=== PATIENT | male | born 1950 | race Caucasian/White ===

== ENCOUNTER 2018-03-08 08:32 | Day surgery (SDC) | payer OTHER, MEDICARE, BC ==
[~2018-03-08 08:32] MED LIST: Metoclopramide 10 MG/2 ML SDV IV PRN; Sodium Chloride 0.9% 1,000 ML IV SCH; Sodium Chloride 0.9% 10 ML Syringe FLUSH PRN
[2018-03-08] MEDS ORDERED: Propofol 200 MG/20 ML SDV ONE (10:35)
--- NOTE | 2018-03-08 11:55 | OR ---
DATE OF OPERATION: 03/08/2018 PREOPERATIVE DIAGNOSIS: Personal history of colon polyps. POSTOPERATIVE DIAGNOSIS: Personal history of colon polyps. PROCEDURE: Colonoscopy. ANESTHESIA: MAC. ESTIMATED BLOOD LOSS: None. COMPLICATIONS: None. INDICATION FOR THE PROCEDURE: The patient is a 67-year-old male, who is here for surveillance colonoscopy. Last scope was approximately 5 years ago. It was normal per patient. The patient did have polyps seen on previous colonoscopy. The patient otherwise denies any change in bowel habits. DESCRIPTION OF PROCEDURE: Informed consent was obtained from the patient. The patient was taken to the operating room and placed on the table in the left lateral decubitus position. Monitored anesthesia care was administered. Digital rectal exam was normal. Colonoscope was then advanced through the anus directed towards the cecum. Cecum was identified by appendiceal orifice and ileocecal valve. Colonoscope was then slowly withdrawn. The patient did have some mild sigmoid diverticulosis. Otherwise no polyps. No masses. No areas of AV malformation or ischemia or inflammation. Retroflexion was performed in the rectum which was also unremarkable. Colonoscope was then withdrawn. FINDINGS: Mild sigmoid diverticulosis. RECOMMENDATIONS: We would recommend a high-fiber diet. I would also recommend repeat colonoscopy in 10 years from now for further surveillance. HANNAH/KAMILA /[id number]
== END 2018-03-08 12:20 | disposition home or self-care (01) ==
LOC: LB.SDS 08:32
PROVIDERS: ATTEND Surgery
DX: Z12.11 Encounter for screening for malignant neoplasm of colon (principal); K57.30 Diverticulosis of large intestine without perforation or abscess without bleeding; Z86.010 Personal history of colon polyps; E78.00 Pure hypercholesterolemia, unspecified; J44.9 Chronic obstructive pulmonary disease, unspecified; Z87.891 Personal history of nicotine dependence; K21.9 Gastro-esophageal reflux disease without esophagitis; Z88.8 Allergy status to other drugs, medicaments and biological substances; Z79.899 Other long term (current) drug therapy
CPT/HCPCS: J2704; J7030

== ENCOUNTER → 2019-09-10 | Outpatient (CLI) | payer OTHER, MEDICARE ==
--- NOTE | 2019-09-12 12:45 | CT ---
Date of Service: 09/10/19 Clinical Data: Malignant neoplasm of unspecified part of unspecified bronchus or lung UNENHANCED CHEST CT: Multislice acquisition through the chest without IV contrast was performed. No priors. There are extensive emphysematous changes throughout both lungs. There are biapical asthmatic changes and cystic changes. There are poorly defined infiltrates with the extensive area of mass-like consolidation involving the left upper lobe anteriorly. There also volume loss on the left upper lobe. All of this could be an infectious or inflammatory process. The possibility of tumor should be considered. The lungs are otherwise clear. No pneumothorax. No pleural effusions. Heart size is normal. There are mild coronary artery calcifications. There is a small pericardial effusion. No hilar or mediastinal adenopathy. Mild degenerative disk disease at multiple levels in the thoracic spine. No other significant findings. IMPRESSION: Abnormal exam. See above. [id number] MTDD
== END ==
LOC: LB.CT 10:28
PROVIDERS: ATTEND Family Medicine
DX: C34.90 Malignant neoplasm of unspecified part of unspecified bronchus or lung (principal); I25.10 Atherosclerotic heart disease of native coronary artery without angina pectoris; I31.3 Pericardial effusion (noninflammatory); M51.34 Other intervertebral disc degeneration, thoracic region
CPT/HCPCS: 71250

== ENCOUNTER 2019-09-24 08:06 | Observation (INO) | payer OTHER, MEDICARE ==
[2019-09-24] MEDS ORDERED: Sodium Chloride 0.9% 10 ML Syringe FLUSH PRN ×2 (08:26→11:53)
[2019-09-24] MEDS ORDERED: Sodium Chloride 0.9% 1,000 ML IV SCH (08:30)
--- NOTE | 2019-09-24 08:34 | EDM.PDOC ---
ED HPI GENERAL MEDICAL PROBLEM - General Chief Complaint: General Stated Complaint: TROUBLE BREATHING Time Seen by Provider: 09/24/19 08:20 Source of Information: Reports: Patient History Limitations: Reports: No Limitations - History of Present Illness INITIAL COMMENTS - FREE TEXT/NARRATIVE: This patient presents to the ED for evaluation of cough and fatigue. He states he has been ill for the past week and that it started with a cough. As the week has progressed, the patient has become increasingly fatigued and the cough has gotten much worse. He reports being unable to walk through his home without having to stop and rest and because he is quite short of breath. He is also having difficulty speaking in full sentences due to shortness of breath. He denies fever. His appetite is poor. He denies vomiting or diarrhea. Onset: Gradual Onset Date: 09/17/19 Duration: Getting Worse Location: Reports: Chest Associated Symptoms: Reports: Cough, Loss of Appetite, Shortness of Breath, Weakness. Denies: Fever/Chills, Headaches, Nausea/Vomiting Bilateral Chest Pain Score (Numeric/FACES): 2 - Related Data Allergies Allergy/AdvReac Type Severity Reaction Status Date / Time naproxen [From Aleve] Allergy Hives Verified 09/24/19 08:14 Home Meds: Home Meds Aspirin [Nash Chewable] 81 mg PO QPM 03/06/18 [History] Multivitamin [Men's Multi-Vitamin] 1 each PO QPM 03/06/18 [History] atorvaSTATin [Lipitor] 20 mg PO BEDTIME 03/06/18 [History] Past Medical History Cardiovascular History: Reports: High Cholesterol Gastrointestinal History: Reports: None - Past Surgical History Cardiovascular Surgical History: Reports: None Respiratory Surgical History: Reports: Lung Biopsies, Other (See Below) Other Respiratory Surgeries/Procedures: partial lobectomy GI Surgical History: Reports: Appendectomy, Colonoscopy, Polypectomy Social & Family History - Family History Family Medical History: Noncontributory ED ROS GENERAL - Review of Systems Review Of Systems: See Below Constitutional: Reports: Weakness, Decreased Appetite. Denies: Fever HEENT: Reports: No Symptoms Respiratory: Reports: Shortness of Breath, Wheezing, Cough Cardiovascular: Reports: No Symptoms GI/Abdominal: Reports: Decreased Appetite. Denies: Diarrhea, Vomiting Musculoskeletal: Reports: No Symptoms Skin: Reports: No Symptoms Neurological: Reports: No Symptoms ED EXAM, GENERAL - Physical Exam Exam: See Below Exam Limited By: No Limitations General Appearance: Alert, WD/WN, No Apparent Distress Eye Exam: Bilateral Eye: PERRL Ears: Normal External Exam Nose: Normal Inspection Throat/Mouth: Normal Inspection Head: Atraumatic, Normocephalic Neck: Normal Inspection, Supple, Full Range of Motion Respiratory/Chest: Respiratory Distress, Decreased Breath Sounds, Rales ( bilateral bases), Wheezing (scattered inspiratory), Accessory Muscle Use, Retractions Cardiovascular: Regular Rate, Rhythm Extremities: Normal Inspection Neurological: Alert, Oriented, Normal Cognition Skin Exam: Warm, Dry, Normal Color Course - Vital Signs Last Recorded V/S: Last Vital Signs Temp 36.1 C 09/24/19 08:15 Pulse 106 H 09/24/19 08:15 Resp 22 H 09/24/19 08:15 BP 153/90 H 09/24/19 08:15 Pulse Ox 96 09/24/19 08:15 - Orders/Labs/Meds Orders: Active Orders 24 hr Category Date Time Status Chest 2V [CR] Stat Exams 09/24/19 08:26 Taken BASIC METABOLIC PANEL,BMP [CHEM] Stat Lab 09/24/19 08:26 Ordered CULTURE BLOOD [BC] Stat Lab 09/24/19 08:50 Received LACTATE DEHYDROGENASE,LDH [CHEM] Stat Lab 09/24/19 08:27 Ordered Levofloxacin/Dextrose 5%-Water [Levaquin in D5W 750 MG/ Med 09/24/19 09:15 Active 150 ML] 750 mg Premix Bag 1 bag IV Q24H Sodium Chloride 0.9% [Normal Saline] 1,000 ml Med 09/24/19 08:30 Active IV ASDIRECTED Sodium Chloride 0.9% [Saline Flush] Med 09/24/19 08:26 Active 10 ml FLUSH ASDIRECTED PRN Saline Lock Insert [OM.PC] Stat Oth 09/24/19 08:26 Ordered Medication Orders Acetaminophen (Tylenol) 650 mg PO Q4H PRN PRN Reason: Fever Albuterol/Ipratropium (Duoneb 3.0-0.5 Mg/3 Ml) 3 ml NEB QID PRN PRN Reason: Shortness Of Breath/wheezing Last Admin: 09/24/19 08:55 Dose: 3 ml Sodium Chloride (Normal Saline) 1,000 mls @ 999 mls/hr IV ASDIRECTED ELIZABETH Last Admin: 09/24/19 08:50 Dose: 999 mls/hr Levofloxacin/Dextrose 750 mg/ (Premix) 150 mls @ 100 mls/hr IV Q24H [facility] Ondansetron HCl (Zofran) 4 mg IV Q4H PRN PRN Reason: Nausea/Vomiting Sodium Chloride (Saline Flush) 10 ml FLUSH ASDIRECTED PRN PRN Reason: Keep Vein Open Labs: Laboratory Tests 09/24/19 Range/Units 08:30 WBC 14.4 H D (4.0-11.0) K/uL RBC 4.99 (4.50-6.50) M/uL Hgb 14.1 (13.0-18.0) g/dL Hct 41.9 (40.0-54.0) % MCV 84 (76-96) fL MCH 28.3 (27.0-32.0) pg MCHC 33.7 (31.0-35.0) g/dL RDW 14.4 (11.0-16.0) % Plt Count 309 D (150-400) K/uL MPV 9.9 (6.0-10.0) fL Neut % (Auto) 75.7 H (45.0-70.0) % Lymph % (Auto) 11.4 L (20.0-40.0) % Wright % (Auto) 11.6 H (3.0-10.0) % Eos % (Auto) 0.8 L (1.0-5.0) % Baso % (Auto) 0.5 (0.0-0.5) % Neut # (Auto) 10.86 H (2.00-7.50) K/uL Lymph # (Auto) 1.64 (1.50-4.00) K/uL Wright # (Auto) 1.66 H (0.20-0.80) K/uL Eos # (Auto) 0.12 (0.04-0.40) K/uL Baso # (Auto) 0.07 (0.02-0.10) K/uL Meds: Medications Generic Name Dose Route Start Last Admin Trade Name Freq PRN Reason Stop Dose Admin Acetaminophen 650 mg 09/24/19 09:15 Tylenol PO Q4H PRN Fever Albuterol/Ipratropium 3 ml 09/24/19 09:11 09/24/19 08:55 Duoneb 3.0-0.5 Mg/3 Ml NEB 3 ml QID PRN Administration Shortness Of Breath/wheezing Sodium Chloride 1,000 mls @ 999 mls/hr 09/24/19 08:30 09/24/19 08:50 Normal Saline IV 999 mls/hr ASDIRECTED ELIZABETH Administration Levofloxacin/Dextrose 750 mg/ 150 mls @ 100 mls/hr 09/24/19 09:15 Premix IV Q24H ELIZABETH Ondansetron HCl 4 mg 09/24/19 09:11 Zofran IV Q4H PRN Nausea/Vomiting Sodium Chloride 10 ml 09/24/19 08:26 Saline Flush FLUSH ASDIRECTED PRN Keep Vein Open - Re-Assessments/Exams Free Text/Narrative Re-Assessment/Exam: 09/24/19 09:31 This patient presents to the ED for evlaution of cough and fatigue. History and clinical findings are most consistent with pneumonia. On plain film the patient appears to have a right middle lob pneumonia. He will be admitted to the inpatient unit on observation status for oxygen therapy and IV antibiotics. Departure - Departure Time of Disposition: 09:32 Disposition: Refer to Observation Condition: Fair Clinical Impression: Pneumonia - Discharge Information *PRESCRIPTION DRUG MONITORING PROGRAM REVIEWED*: Not Applicable Sepsis Event Note - Evaluation Sepsis Screening Result: No Definite Risk - Focused Exam Vital Signs: Vital Signs Temp Pulse Resp BP Pulse Ox 09/24/19 08:15 36.1 C 106 H 22 H 153/90 H 96 09/24/19 08:11 36.1 C 110 H 22 H 153/90 H 96 Date Exam was Performed: 09/24/19 Time Exam was Performed: 09:31 - My Orders Last 24 Hours: My Active Orders 09/24/19 08:26 Chest 2V [CR] Stat BASIC METABOLIC PANEL,BMP [CHEM] Stat Sodium Chloride 0.9% [Saline Flush] 10 ml FLUSH ASDIRECTED PRN Saline Lock Insert [OM.PC] Stat 09/24/19 08:27 LACTATE DEHYDROGENASE,LDH [CHEM] Stat 09/24/19 08:30 Sodium Chloride 0.9% [Normal Saline] 1,000 ml IV ASDIRECTED 09/24/19 08:50 CULTURE BLOOD [BC] Stat 09/24/19 09:15 Levofloxacin/Dextrose 5%-Water [Levaquin in D5W 750 MG/150 ML] 750 mg Premix Bag 1 bag IV Q24H - Assessment/Plan Last 24 Hours: My Active Orders 09/24/19 08:26 Chest 2V [CR] Stat BASIC METABOLIC PANEL,BMP [CHEM] Stat Sodium Chloride 0.9% [Saline Flush] 10 ml FLUSH ASDIRECTED PRN Saline Lock Insert [OM.PC] Stat 09/24/19 08:27 LACTATE DEHYDROGENASE,LDH [CHEM] Stat 09/24/19 08:30 Sodium Chloride 0.9% [Normal Saline] 1,000 ml IV ASDIRECTED 09/24/19 08:50 CULTURE BLOOD [BC] Stat 09/24/19 09:15 Levofloxacin/Dextrose 5%-Water [Levaquin in D5W 750 MG/150 ML] 750 mg Premix Bag 1 bag IV Q24H
[2019-09-24] MEDS ORDERED: Ondansetron 4 MG/2 ML SDV IV PRN (09:11)
[2019-09-24] MEDS ORDERED: Albuterol/Ipratropium 3.0-0.5 MG/3 ML Neb Soln NEB PRN (09:11)
--- NOTE | 2019-09-24 09:45 | PCM.HP.2 ---
H&P History of Present Illness - General Date of Service: 09/24/19 Admit Problem/Dx: Admission Diagnosis/Problem Admission Diagnosis/Problem Pneumonia Source of Information: Patient History Limitations: Reports: No Limitations - History of Present Illness Initial Comments - Free Text/Narative: See ED record. Bilateral Chest Pain Score (Numeric/FACES): 2 - Related Data Allergies/Adverse Reactions: Allergies Allergy/AdvReac Type Severity Reaction Status Date / Time naproxen [From Aleve] Allergy Hives Verified 09/24/19 08:14 Home Medications: Home Meds Aspirin [Nash Chewable] 81 mg PO QPM 03/06/18 [History] Multivitamin [Men's Multi-Vitamin] 1 each PO QPM 03/06/18 [History] atorvaSTATin [Lipitor] 20 mg PO BEDTIME 03/06/18 [History] Past Medical History Cardiovascular History: Reports: High Cholesterol Gastrointestinal History: Reports: None - Past Surgical History Cardiovascular Surgical History: Reports: None Respiratory Surgical History: Reports: Lung Biopsies, Other (See Below) Other Respiratory Surgeries/Procedures: partial lobectomy GI Surgical History: Reports: Appendectomy, Colonoscopy, Polypectomy Social & Family History - Family History Family Medical History: Noncontributory H&P Review of Systems - Review of Systems: Review Of Systems: See Below General: Reports: Weakness, Fatigue, Decreased Appetite. Denies: Fever HEENT: Reports: No Symptoms Pulmonary: Reports: Shortness of Breath, Wheezing, Cough, Sputum Cardiovascular: Reports: Dyspnea on Exertion, Orthopnea. Denies: Chest Pain Gastrointestinal: Denies: Diarrhea, Nausea, Vomiting Musculoskeletal: Reports: No Symptoms Skin: Reports: No Symptoms Neurological: Reports: No Symptoms Exam - Exam Exam: See Below - Vital Signs Vital Signs: Last Vital Signs Temp 36.1 C 09/24/19 08:15 Pulse 106 H 09/24/19 08:15 Resp 22 H 09/24/19 08:15 BP 153/90 H 09/24/19 08:15 Pulse Ox 96 09/24/19 08:15 Weight: 66.224 kg - Exam Quality Assessment: Supplemental Oxygen General: Alert, Oriented, Cooperative, Moderate Distress HEENT: PERRLA, Conjunctiva Clear, EOMI, Hearing Intact, Mucosa Moist & [place], Nares Patent, Posterior Pharynx Clear, Pupils Equal, Pupils Reactive, TMs Clear Neck: Supple, Trachea Midline Lungs: Decreased Breath Sounds, Rales, Stridor, Wheezing, Other (decreased to bases, intermittent expiratory wheezes) Cardiovascular: Regular Rate, Regular Rhythm GI/Abdominal Exam: Normal Bowel Sounds, Soft, Non-Tender, No Distention Extremities: Normal Inspection, Normal Range of Motion, No Pedal Edema Skin: Warm, Dry Neurological: Cranial Nerves Intact Neuro Extensive - Mental Status: Alert, Oriented x3, Normal Mood/Affect, Normal Cognition Psychiatric: Alert, Normal Affect - Patient Data Lab Results Last 24 hrs: Laboratory Results - last 24 hr 09/24/19 09/24/19 09/24/19 Range/Units 08:30 08:30 08:30 WBC 14.4 H D (4.0-11.0) K/uL RBC 4.99 (4.50-6.50) M/uL Hgb 14.1 (13.0-18.0) g/dL Hct 41.9 (40.0-54.0) % MCV 84 (76-96) fL MCH 28.3 (27.0-32.0) pg MCHC 33.7 (31.0-35.0) g/dL RDW 14.4 (11.0-16.0) % Plt Count 309 D (150-400) K/uL MPV 9.9 (6.0-10.0) fL Neut % (Auto) 75.7 H (45.0-70.0) % Lymph % (Auto) 11.4 L (20.0-40.0) % [place] % (Auto) 11.6 H (3.0-10.0) % Eos % (Auto) 0.8 L (1.0-5.0) % Baso % (Auto) 0.5 (0.0-0.5) % Neut # (Auto) 10.86 H (2.00-7.50) K/uL Lymph # (Auto) 1.64 (1.50-4.00) K/uL [place] # (Auto) 1.66 H (0.20-0.80) K/uL Eos # (Auto) 0.12 (0.04-0.40) K/uL Baso # (Auto) 0.07 (0.02-0.10) K/uL Sodium 136 (136-145) mmol/L Potassium 4.2 (3.5-5.1) mmol/L Chloride 94 L (98-107) mmol/L Carbon Dioxide 30.7 (21.0-32.0) mmol/L Anion Gap 15.5 H (5.0-15.0) mmol/L BUN 13 (8-26) mg/dL Creatinine 0.83 (0.70-1.30) mg/dL Est Cr Clr Drug Dosing 74.73 mL/min Estimated GFR (MDRD) > 60 (>60) MLS/MIN BUN/Creatinine Ratio 15.7 (6-25) Glucose 111 H (74-100) mg/dL Calcium 9.0 (8.5-10.1) mg/dL Lactate Dehydrogenase 324 H (85-227) U/L Result Diagrams: 09/24/19 08:30 09/24/19 08:30 Sepsis Event Note - Evaluation Sepsis Screening Result: No Definite Risk - Focused Exam Vital Signs: Vital Signs Temp Pulse Resp BP Pulse Ox 09/24/19 08:15 36.1 C 106 H 22 H 153/90 H 96 09/24/19 08:11 36.1 C 110 H 22 H 153/90 H 96 Date Exam was Performed: 09/24/19 Time Exam was Performed: 09:41 - Problem List (1) Pneumonia SNOMED Code(s): 151133980 ICD Code: J18.9 - PNEUMONIA, UNSPECIFIED ORGANISM Status: Acute Priority : High Current Visit: Yes Onset Date: ~09/17/19 Qualifiers: Pneumonia type: due to unspecified organism Laterality: right Lung location: middle lobe of lung Qualified Code(s): J18.9 - Pneumonia, unspecified organism Problem List Initiated/Reviewed/Updated: No Orders Last 24hrs: Active Orders 24 hr Category Date Time Status Patient Status [ADT] Routine ADT 09/24/19 09:12 Active Oxygen Therapy [RC] PRN Care 09/24/19 09:12 Active Pulse Oximetry [RC] CONTINUOUS Care 09/24/19 09:14 Active RT Aerosol Therapy [RC] ASDIRECTED Care 09/24/19 09:15 Active Up With Assistance [RC] ASDIRECTED Care 09/24/19 09:11 Active VTE/DVT Education [RC] Per Unit Routine Care 09/24/19 09:12 Active Vital Signs [RC] Q4H Care 09/24/19 09:12 Active Full Liquid Diet [DIET] Diet 09/24/19 Lunch Ordered Chest 2V [CR] Stat Exams 09/24/19 08:26 Taken CULTURE BLOOD [BC] Stat Lab 09/24/19 08:50 Received Acetaminophen [Tylenol] Med 09/24/19 09:15 Active 650 mg PO Q4H PRN Albuterol/Ipratropium [DuoNeb 3.0-0.5 MG/3 ML] Med 09/24/19 09:11 Active 3 ml NEB QID PRN Levofloxacin/Dextrose 5%-Water [Levaquin in D5W 750 MG/ Med 09/24/19 09:15 Active 150 ML] 750 mg Premix Bag 1 bag IV Q24H Ondansetron [Zofran] Med 09/24/19 09:11 Active 4 mg IV Q4H PRN Sodium Chloride 0.9% [Normal Saline] 1,000 ml Med 09/24/19 08:30 Active IV ASDIRECTED Sodium Chloride 0.9% [Saline Flush] Med 09/24/19 08:26 Active 10 ml FLUSH ASDIRECTED PRN Saline Lock Insert [OM.PC] Stat Oth 09/24/19 08:26 Ordered Resuscitation Status Routine Resus Stat 09/24/19 09:11 Ordered Medication Orders Acetaminophen (Tylenol) 650 mg PO Q4H PRN PRN Reason: Fever Albuterol/Ipratropium (Duoneb 3.0-0.5 Mg/3 Ml) 3 ml NEB QID PRN PRN Reason: Shortness Of Breath/wheezing Last Admin: 09/24/19 08:55 Dose: 3 ml Sodium Chloride (Normal Saline) 1,000 mls @ 999 mls/hr IV ASDIRECTED ELIZABETH Last Admin: 09/24/19 08:50 Dose: 999 mls/hr Levofloxacin/Dextrose 750 mg/ (Premix) 150 mls @ 100 mls/hr IV Q24H [facility] Ondansetron HCl (Zofran) 4 mg IV Q4H PRN PRN Reason: Nausea/Vomiting Sodium Chloride (Saline Flush) 10 ml FLUSH ASDIRECTED PRN PRN Reason: Keep Vein Open - Mortality Measure Prognosis:: Good
[2019-09-24] MEDS ORDERED: Levofloxacin/Dextrose 5%-Water 150 ML IV ONE (10:41)
[2019-09-24] MEDS: Levofloxacin/Dextrose 5%-Water 750 MG in Premix Bag 1 BAG IV SCH (11:06)
--- NOTE | 2019-09-24 11:46 | CR ---
DATE OF SERVICE: 09/24/19 CLINICAL DATA: Cough. PA AND LATERAL CHEST: Comparison is made to a prior exam dated 04/22/19. The heart size is normal. There is progressive, masslike consolidation in the right hilum and right perihilar region with increase in size and extent from the prior exam. No other significant interval changes from the prior study. [id number] MTDD
[2019-09-24] MEDS ORDERED: Codeine/guaiFENesin 10-100 MG/5 ML Syrup 5 ML Cup PO PRN (16:38)
[2019-09-24] MEDS ORDERED: atorvaSTATin 20 MG Tab PO SCH (20:00)
[2019-09-24] MEDS: Acetaminophen 325 MG Tab PO PRN (20:11)
[2019-09-25] MEDS: Acetaminophen 325 MG Tab PO PRN (04:04)
[2019-09-25] MEDS ORDERED: Aspirin 81 MG Tab.Chew PO SCH ×2 (08:00→20:00)
[2019-09-25] MEDS ORDERED: Levofloxacin/Dextrose 5%-Water 150 ML IV ONE (08:12)
[2019-09-25] MEDS: Levofloxacin/Dextrose 5%-Water 750 MG in Premix Bag 1 BAG IV SCH (08:45)
--- NOTE | 2019-09-25 11:58 | PCM.PN ---
- General Info Date of Service: 09/25/19 Admission Dx/Problem (Free Text): Admission Diagnosis/Problem Admission Diagnosis/Problem Pneumonia Subjective Update: Denies pain except some chest tightness with cough. Functional Status: Reports: Pain Controlled - Review of Systems General: Denies: Fever HEENT: Reports: No Symptoms Pulmonary: Reports: Shortness of Breath, Cough Cardiovascular: Reports: No Symptoms Gastrointestinal: Reports: No Symptoms Genitourinary: Reports: No Symptoms Musculoskeletal: Reports: No Symptoms Skin: Reports: No Symptoms Neurological: Reports: No Symptoms - Patient Data Vitals - Most Recent: Last Vital Signs Temp 36.7 C 09/25/19 08:00 Pulse 87 09/25/19 08:00 Resp 20 09/25/19 08:00 BP 140/90 09/25/19 08:00 Pulse Ox 93 L 09/25/19 09:10 Weight - Most Recent: 64.592 kg Jason Results Last 24 Hours: Microbiology 09/24/19 13:00 MRSA Surveillance Culture - Final Nares, Left NO MRSA ISOLATED 09/24/19 08:50 Aerobic Blood Culture - Preliminary Blood NO GROWTH AFTER 1 DAY Anaerobic Blood Culture - Preliminary NO GROWTH AFTER 1 DAY Med Orders - Current: Current Medications Acetaminophen (Tylenol) 650 mg PO Q4H PRN PRN Reason: Fever Last Admin: 09/25/19 04:04 Dose: 650 mg Albuterol/Ipratropium (Duoneb 3.0-0.5 Mg/3 Ml) 3 ml NEB QID PRN PRN Reason: Shortness Of Breath/wheezing Last Admin: 09/24/19 08:55 Dose: 3 ml Aspirin (Aspirin) 81 mg PO DAILY [facility] Atorvastatin Calcium (Lipitor) 20 mg PO BEDTIME [facility] Last Admin: 09/24/19 20:12 Dose: 20 mg Guaifenesin/Codeine Phosphate (Robitussin Ac) 5 ml PO Q4H PRN PRN Reason: Cough Sodium Chloride (Normal Saline) 1,000 mls @ 999 mls/hr IV ASDIRECTED [facility] Last Admin: 09/24/19 08:50 Dose: 999 mls/hr Levofloxacin/Dextrose 750 mg/ (Premix) 150 mls @ 100 mls/hr IV Q24H [facility] Last Admin: 09/25/19 08:45 Dose: 100 mls/hr Ondansetron HCl (Zofran) 4 mg IV Q4H PRN PRN Reason: Nausea/Vomiting Sodium Chloride (Saline Flush) 10 ml FLUSH ASDIRECTED PRN PRN Reason: Keep Vein Open Last Admin: 09/24/19 20:13 Dose: 10 ml Sodium Chloride (Saline Flush) 10 ml FLUSH ASDIRECTED PRN PRN Reason: Keep Vein Open Discontinued Medications Levofloxacin/Dextrose (Levaquin In D5w 750 Mg/150 Ml) Confirm Administered Dose 150 mls @ as directed IV [facility] ONE Stop: 09/24/19 10:42 Last Admin: 09/24/19 11:07 Dose: Not Given Levofloxacin/Dextrose (Levaquin In D5w 750 Mg/150 Ml) Confirm Administered Dose 150 mls @ as directed IV [facility] ONE Stop: 09/25/19 08:13 Last Admin: 09/25/19 09:16 Dose: Not Given - Exam Quality Assessment: Supplemental Oxygen (Continues to require 1L via NC to keep saturation >90%; tolerated shower but does state he got SOB during.) General: Alert, Oriented, Cooperative, No Acute Distress HEENT: Pupils Equal, Pupils Reactive, EOMI, Mucous Membr. Moist/[place] Neck: Supple Lungs: Normal Respiratory Effort, Other (occasional expiratory wheeze with significantly improved air entry ) Cardiovascular: Regular Rate, Regular Rhythm GI/Abdominal Exam: Normal Bowel Sounds, Soft, Non-Tender, No Distention Extremities: Normal Inspection Skin: Warm, Dry, Intact Neurological: No New Focal Deficit Psy/Mental Status: Alert, Normal Affect, Normal Mood Sepsis Event Note - Evaluation Sepsis Screening Result: No Definite Risk - Focused Exam Vital Signs: Vital Signs Temp Pulse Resp BP Pulse Ox 09/25/19 09:10 93 L 09/25/19 08:00 36.7 C 87 20 140/90 93 L 09/25/19 04:00 36.4 C 92 18 128/67 97 Date Exam was Performed: 09/25/19 Time Exam was Performed: 11:53 - Problem List & Annotations (1) Pneumonia SNOMED Code(s): 558060695 Code(s): J18.9 - PNEUMONIA, UNSPECIFIED ORGANISM Status: Acute Priority: High Current Visit: Yes Onset Date: ~09/17/19 Qualifiers: Pneumonia type: due to unspecified organism Laterality: right Lung location: middle lobe of lung Qualified Code(s): J18.9 - Pneumonia, unspecified organism - Problem List Review Problem List Initiated/Reviewed/Updated: No - My Orders Last 24 Hours: My Active Orders 09/25/19 08:00 Aspirin 81 mg PO DAILY 09/24/19 11:53 Sodium Chloride 0.9% [Saline Flush] 10 ml FLUSH ASDIRECTED PRN Saline Lock Insert [OM.PC] Routine 09/24/19 16:38 Codeine/guaiFENesin [Robitussin AC] 5 ml PO Q4H PRN 09/24/19 20:00 atorvaSTATin [Lipitor] 20 mg PO BEDTIME 09/24/19 Lunch Full Liquid Diet [DIET] - Assessment Assessment:: Breath sounds improved significantly today; however, patient still requires oxygen to maintain saturation >90%. Fatigue somewhat improved today. - Plan Plan:: 1) Continue with IV antibiotics. 2) Advance diet as tolerated. 3) Continue supplemental oxygen as needed to keep saturations >90% 4) Trial wean to RA. 5) Anticipate discharge on 09/26/19
--- NOTE | 2019-09-25 15:58 | PCM.DCSUM1 ---
Discharge Summary - Hospital Course Free Text/Narrative:: This patient presented to the ED yesterday with a history and clinical findings consistent with pneumonia. He has been hospitalized since then for hypoxia and IV antibiotics. He was weaned to room air approximately 2 hours ago and has maintained an oxygen saturation around 90% with activity. He states he feels much better, is less short of breath, and feels a bit more rested. Afebrile, appetite good. Decreased coughing this afternoon. Diagnosis: Stroke: No - Discharge Data Discharge Date: 09/25/19 Discharge Disposition: Home, Self-Care 01 Condition: Good - Referral to Home Health Primary Care Physician: Kieran Rosas MD - Discharge Diagnosis/Problem(s) (1) Pneumonia SNOMED Code(s): 668492874 ICD Code: J18.9 - PNEUMONIA, UNSPECIFIED ORGANISM Status: Acute Priority : High Current Visit: Yes Onset Date: ~09/17/19 Qualifiers: Pneumonia type: due to unspecified organism Laterality: right Lung location: middle lobe of lung Qualified Code(s): J18.9 - Pneumonia, unspecified organism - Patient Instructions Diet: Usual Diet as Tolerated Driving: May Drive Today Showering/Bathing: May Shower Notify Provider of: Fever (or increased difficulty breathing) - Discharge Plan *PRESCRIPTION DRUG MONITORING PROGRAM REVIEWED*: Not Applicable Home Medications: Home Meds Aspirin [Nash Chewable] 81 mg PO QPM 03/06/18 [History] Multivitamin [Men's Multi-Vitamin] 1 each PO QPM 03/06/18 [History] atorvaSTATin [Lipitor] 20 mg PO BEDTIME 03/06/18 [History] Oxygen Therapy Mode: Room Air Patient Handouts: Community-Acquired Pneumonia, Adult, [id number] Forms: ED Department Discharge Referrals: Kieran Rosas MD [Primary Care Provider] - - Discharge Summary/Plan Comment DC Time >30 min.: Yes - Patient Data Vitals - Most Recent: Last Vital Signs Temp 36.6 C 09/25/19 15:31 Pulse 88 09/25/19 15:31 Resp 20 09/25/19 15:31 BP 124/70 09/25/19 15:31 Pulse Ox 90 L 09/25/19 15:31 Weight - Most Recent: 64.592 kg LILIBETH Results - Last 24 hrs: Microbiology 09/24/19 13:00 MRSA Surveillance Culture - Final Nares, Left NO MRSA ISOLATED 09/24/19 08:50 Aerobic Blood Culture - Preliminary Blood NO GROWTH AFTER 1 DAY Anaerobic Blood Culture - Preliminary NO GROWTH AFTER 1 DAY Med Orders - Current: Current Medications Acetaminophen (Tylenol) 650 mg PO Q4H PRN PRN Reason: Fever Last Admin: 09/25/19 04:04 Dose: 650 mg Albuterol/Ipratropium (Duoneb 3.0-0.5 Mg/3 Ml) 3 ml NEB QID PRN PRN Reason: Shortness Of Breath/wheezing Last Admin: 09/24/19 08:55 Dose: 3 ml Aspirin (Aspirin) 81 mg PO DAILY [facility] Last Admin: 09/25/19 10:00 Dose: Not Given Atorvastatin Calcium (Lipitor) 20 mg PO BEDTIME [facility] Last Admin: 09/24/19 20:12 Dose: 20 mg Guaifenesin/Codeine Phosphate (Robitussin Ac) 5 ml PO Q4H PRN PRN Reason: Cough Sodium Chloride (Normal Saline) 1,000 mls @ 999 mls/hr IV ASDIRECTED [facility] Last Admin: 09/24/19 08:50 Dose: 999 mls/hr Levofloxacin/Dextrose 750 mg/ (Premix) 150 mls @ 100 mls/hr IV Q24H [facility] Last Admin: 09/25/19 08:45 Dose: 100 mls/hr Ondansetron HCl (Zofran) 4 mg IV Q4H PRN PRN Reason: Nausea/Vomiting Sodium Chloride (Saline Flush) 10 ml FLUSH ASDIRECTED PRN PRN Reason: Keep Vein Open Last Admin: 09/24/19 20:13 Dose: 10 ml Sodium Chloride (Saline Flush) 10 ml FLUSH ASDIRECTED PRN PRN Reason: Keep Vein Open Discontinued Medications Levofloxacin/Dextrose (Levaquin In D5w 750 Mg/150 Ml) Confirm Administered Dose 150 mls @ as directed IV .STK-MED ONE Stop: 09/24/19 10:42 Last Admin: 09/24/19 11:07 Dose: Not Given Levofloxacin/Dextrose (Levaquin In D5w 750 Mg/150 Ml) Confirm Administered Dose 150 mls @ as directed IV .STK-MED ONE Stop: 09/25/19 08:13 Last Admin: 09/25/19 09:16 Dose: Not Given
[2019-09-25] MEDS ORDERED: atorvaSTATin 20 MG Tab PO SCH (20:00)
[2019-09-25] MEDS ORDERED: Non-Formulary Medication 1 Each (Multivitamin [Men's Multi-Vitamin] 1 EACH) PO SCH (20:00)
== END 2019-09-25 16:15 | disposition home or self-care (01) ==
LOC: LB.ED 08:06 → LB.MS 09:11
PROVIDERS: ADMIT Nurse Practitioner; ATTEND Nurse Practitioner
DX: J18.9 Pneumonia, unspecified organism (principal); E78.00 Pure hypercholesterolemia, unspecified; Z79.82 Long term (current) use of aspirin; Z79.899 Other long term (current) drug therapy; Z88.8 Allergy status to other drugs, medicaments and biological substances; Z90.2 Acquired absence of lung [part of]
CPT/HCPCS: 36415; 71046; 80048; 83615; 85025; 87040; 96360; 99285; A9270; J1956; J7030; 96361; 96365; 96366; 99217; 99218; G0378; J7620-GY

== ENCOUNTER 2020-03-01 09:21 | Observation (INO) | payer OTHER, MEDICARE ==
[2020-03-01] MEDS ORDERED: Sodium Chloride 0.9% 10 ML Syringe FLUSH PRN (11:33)
[2020-03-01] MEDS ORDERED: Sodium Chloride 0.9% 250 ML IV SCH (11:45)
[2020-03-01] MEDS ORDERED: Ondansetron 4 MG/2 ML SDV IV PRN (11:54)
--- NOTE | 2020-03-01 12:04 | EDM.PDOC ---
ED HPI GENERAL MEDICAL PROBLEM - General Chief Complaint: General Stated Complaint: SOB Time Seen by Provider: 03/01/20 10:15 Source of Information: Reports: Patient, RN Notes Reviewed History Limitations: Reports: No Limitations - History of Present Illness INITIAL COMMENTS - FREE TEXT/NARRATIVE: This patient presents to the ED for evaluation of shortness of breath and pain. He has been diagnosed with Stage 4 lung cancer but has not yet started treatment for this. He has been at home on oxygen and pain medications but is scheduled to have a port placed and start chemotherapy this week. He has had increased difficulty breathing and oxygen requirements at home the past several days needing up to 5L per [place]. He has been taking MS Contin 30 mg twice per day with oxycodone for breakthrough pain and states that this is not helping him consistently; sometimes he feels better with pain at 2/10 but more recently has been having pain 5-8/10 with this regimen. He is also reporting no appetite and chills; he has not measured his temperature at home. The past few days he has also been having "panic attacks" that makes it extremely difficult for him to breath. Onset: Gradual Onset Date: 02/26/20 Duration: Constant, Getting Worse Location: Reports: Chest, Back Quality: Reports: Ache, Throbbing Severity: Moderate Improves with: Reports: Medication Worsens with: Reports: Movement (and when pain medications wear off) Associated Symptoms: Reports: Fever/Chills, Loss of Appetite, Malaise, Shortness of Breath, Weakness. 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: Other Medication(s) (MS contin, oxycodone), Oxygen Left Back Pain Score (Numeric/FACES): 5 - Related Data Allergies Allergy/AdvReac Type Severity Reaction Status Date / Time naproxen [From Aleve] Allergy Hives Verified 03/01/20 10:48 Home Meds: Home Meds Aspirin [Nash Chewable] 81 mg PO QPM 03/06/18 [History] Multivitamin [Men's Multi-Vitamin] 1 each PO QPM 03/06/18 [History] atorvaSTATin [Lipitor] 20 mg PO BEDTIME 03/06/18 [History] Hydrocodone/Acetaminophen [Hydrocodon-Acetaminoph 7.5-325] 1 each PO Q6HR [History] Morphine 30 mg PO BID PRN 03/01/20 [History] Past Medical History HEENT History: Reports: None Cardiovascular History: Reports: High Cholesterol Respiratory History: Reports: COPD, Pneumonia, Recurrent Other Respiratory History: Stage 4 lung cancer Gastrointestinal History: Reports: None Other Gastrointestinal History: constipation Musculoskeletal History: Reports: Other (See Below) Other Musculoskeletal History: pinched nerve in left arm, receiving therapy at this time Neurological History: Reports: Migraines Oncologic (Cancer) History: Reports: Lung, Other (See Below) Other Oncologic History: skin cancer, stage 4 lung cancer Dermatologic History: Reports: Melanoma Other Dermatologic History: right side of neck below ear - Past Surgical History Cardiovascular Surgical History: Reports: None Respiratory Surgical History: Reports: Lung Biopsies, Other (See Below) Other Respiratory Surgeries/Procedures: partial lobectomy GI Surgical History: Reports: Appendectomy, Colonoscopy, Polypectomy Dermatological Surgical History: Reports: Skin Biopsy, Other (See Below) Social & Family History - Family History Family Medical History: Noncontributory - Tobacco Use Smoking Status *Q: Never Smoker - Caffeine Use Caffeine Use: Reports: Coffee - Recreational Drug Use Recreational Drug Use: No ED ROS GENERAL - Review of Systems Review Of Systems: Comprehensive ROS is negative, except as noted in HPI. ED EXAM, GENERAL - Physical Exam Exam: See Below Exam Limited By: No Limitations General Appearance: Alert, Anxious, Moderate Distress Eye Exam: Bilateral Eye: PERRL Ears: Normal External Exam Nose: Normal Inspection Throat/Mouth: Normal Inspection Head: Atraumatic, Normocephalic Neck: Normal Inspection Respiratory/Chest: Respiratory Distress, Decreased Breath Sounds (left), Accessory Muscle Use Extremities: Normal Capillary Refill Neurological: Alert, Oriented Skin Exam: Warm, Dry, Intact, Normal Color Course - Vital Signs Last Recorded V/S: Last Vital Signs Temp 36.8 C 03/01/20 11:42 Pulse 94 03/01/20 11:42 Resp 18 03/01/20 11:42 BP 120/66 03/01/20 11:42 Pulse Ox 96 03/01/20 11:42 - Orders/Labs/Meds Orders: Active Orders 24 hr Category Date Time Status Chest 1V Frontal [CR] Stat Exams 03/01/20 11:33 Ordered BASIC METABOLIC PANEL,BMP [CHEM] Stat Lab 03/01/20 11:34 Ordered CBC WITH AUTO DIFF [HEME] Stat Lab 03/01/20 11:34 Ordered Sodium Chloride 0.9% [Normal Saline] 250 ml Med 03/01/20 11:45 Active IV ASDIRECTED Sodium Chloride 0.9% [Saline Flush] Med 03/01/20 11:33 Active 10 ml FLUSH ASDIRECTED PRN Saline Lock Insert [OM.PC] Stat Oth 03/01/20 11:33 Ordered Medication Orders Aspirin (Halfprin) 81 mg PO QPM [facility] Atorvastatin Calcium (Lipitor) 20 mg PO BEDTIME [facility] Sodium Chloride (Normal Saline) 250 mls @ 250 mls/hr IV ASDIRECTED [facility] Lorazepam (Ativan) 1 mg IVPUSH Q4H PRN PRN Reason: Anxiety Morphine Sulfate (Morphine) 4 mg IVPUSH Q2H PRN PRN Reason: Pain (severe 7-10) Naloxegol (Movantik) 12.5 mg PO DAILY [facility] Ondansetron HCl (Zofran) 4 mg IV Q4H PRN PRN Reason: Nausea/Vomiting Sodium Chloride (Saline Flush) 10 ml FLUSH ASDIRECTED PRN PRN Reason: Keep Vein Open Labs: Laboratory Tests 03/01/20 Range/Units 10:29 SARS-CoV-2 RNA (RT-PCR) Negative Meds: Medications Generic Name Dose Route Start Last Admin Trade Name Freq PRN Reason Stop Dose Admin Aspirin 81 mg 03/01/20 20:00 Halfprin PO QPM ELIZABETH Atorvastatin Calcium 20 mg 03/01/20 20:00 Lipitor PO BEDTIME ELIZABETH Sodium Chloride 250 mls @ 250 mls/hr 03/01/20 11:45 Normal Saline IV ASDIRECTED [facility]ETH Lorazepam 1 mg 03/01/20 11:57 Ativan IVPUSH Q4H PRN Anxiety Morphine Sulfate 4 mg 03/01/20 11:54 Morphine IVPUSH Q2H PRN Pain (severe 7-10) Naloxegol 12.5 mg 03/02/20 08:00 Movantik PO DAILY [facility] Ondansetron HCl 4 mg 03/01/20 11:54 Zofran IV Q4H PRN Nausea/Vomiting Sodium Chloride 10 ml 03/01/20 11:33 Saline Flush FLUSH ASDIRECTED PRN Keep Vein Open - Re-Assessments/Exams Free Text/Narrative Re-Assessment/Exam: 03/01/20 12:12 This patient presents to the ED for SOB and pain. He has a diagnoses of Stage 4 lung cancer, COPD, and liver disease. Given his increased oxygen requirements and difficulty getting pain under control, I contacted his oncologist, Dr. Pardo at [facility] to discuss management of this patient. Dr. Pardo feels the patient would not tolerate the placement of a port and initiation of chemotherapy this week and suggests admission to the hospital for pain management and shortness of breath. He will be admitted to the medical-surgical unit on Observation Status for management of complications related to lung cancer. Departure - Departure Time of Disposition: 11:00 Disposition: DC/Tfer W/I Hosp To Swing 61 Condition: Fair Clinical Impression: Shortness of breath, Neoplasm of lung - Discharge Information *PRESCRIPTION DRUG MONITORING PROGRAM REVIEWED*: Not Applicable Sepsis Event Note - Evaluation Sepsis Screening Result: No Definite Risk - Focused Exam Vital Signs: Vital Signs Temp Pulse Resp BP Pulse Ox 03/01/20 10:53 94 98 03/01/20 10:15 36.4 C 97 20 147/95 H 100 03/01/20 10:11 36.4 C 97 20 147/95 H 100 Date Exam was Performed: 03/01/20 Time Exam was Performed: 12:09 - My Orders Last 24 Hours: My Active Orders 03/01/20 11:33 Chest 1V Frontal [CR] Stat Sodium Chloride 0.9% [Saline Flush] 10 ml FLUSH ASDIRECTED PRN Saline Lock Insert [OM.PC] Stat 03/01/20 11:34 BASIC METABOLIC PANEL,BMP [CHEM] Stat CBC WITH AUTO DIFF [HEME] Stat 03/01/20 11:45 Sodium Chloride 0.9% [Normal Saline] 250 ml IV ASDIRECTED - Assessment/Plan Last 24 Hours: My Active Orders 03/01/20 11:33 Chest 1V Frontal [CR] Stat Sodium Chloride 0.9% [Saline Flush] 10 ml FLUSH ASDIRECTED PRN Saline Lock Insert [OM.PC] Stat 03/01/20 11:34 BASIC METABOLIC PANEL,BMP [CHEM] Stat CBC WITH AUTO DIFF [HEME] Stat 03/01/20 11:45 Sodium Chloride 0.9% [Normal Saline] 250 ml IV ASDIRECTED
--- NOTE | 2020-03-01 12:19 | PCM.HP.2 ---
H&P History of Present Illness - General Date of Service: 03/01/20 Admit Problem/Dx: Admission Diagnosis/Problem Admission Diagnosis/Problem Neoplasm of lung Source of Information: Patient, RN Notes Reviewed History Limitations: Reports: No Limitations - History of Present Illness Initial Comments - Free Text/Narative: This patient presents to the ED for evaluation of shortness of breath and pain. He has been diagnosed with Stage 4 lung cancer but has not yet started treatment for this. He has been at home on oxygen and pain medications but is scheduled to have a port placed and start chemotherapy this week. He has had increased difficulty breathing and oxygen requirements at home the past several days needing up to 5L per [place]. He has been taking MS Contin 30 mg twice per day with oxycodone for breakthrough pain and states that this is not helping him consistently; sometimes he feels better with pain at 2/10 but more recently has been having pain 5-8/10 with this regimen. He is also reporting no appetite and chills; he has not measured his temperature at home. The past few days he has also been having "panic attacks" that makes it extremely difficult for him to breath. Onset of Symptoms: Reports: Gradual Duration of Symptoms: Reports: Constant, Getting Worse Location: Reports: Chest, Back Quality: Reports: Ache, Throbbing Improves with: Reports: None Worsens with: Reports: None Associated Symptoms: Reports: No Other Symptoms Left Back Pain Score (Numeric/FACES): 5 - Related Data Allergies/Adverse Reactions: Allergies Allergy/AdvReac Type Severity Reaction Status Date / Time naproxen [From Aleve] Allergy Hives Verified 03/01/20 10:48 Home Medications: Home Meds Aspirin [Nash Chewable] 81 mg PO QPM 03/06/18 [History] Multivitamin [Men's Multi-Vitamin] 1 each PO QPM 03/06/18 [History] atorvaSTATin [Lipitor] 20 mg PO BEDTIME 03/06/18 [History] Hydrocodone/Acetaminophen [Hydrocodon-Acetaminoph 7.5-325] 1 each PO Q6HR [History] Morphine 30 mg PO BID PRN 03/01/20 [History] Past Medical History HEENT History: Reports: None Cardiovascular History: Reports: High Cholesterol Respiratory History: Reports: COPD, Pneumonia, Recurrent Other Respiratory History: Stage 4 lung cancer Gastrointestinal History: Reports: None Other Gastrointestinal History: constipation Musculoskeletal History: Reports: Other (See Below) Other Musculoskeletal History: pinched nerve in left arm, receiving therapy at this time Neurological History: Reports: Migraines Oncologic (Cancer) History: Reports: Lung, Other (See Below) Other Oncologic History: skin cancer, stage 4 lung cancer Dermatologic History: Reports: Melanoma Other Dermatologic History: right side of neck below ear - Past Surgical History Cardiovascular Surgical History: Reports: None Respiratory Surgical History: Reports: Lung Biopsies, Other (See Below) Other Respiratory Surgeries/Procedures: partial lobectomy GI Surgical History: Reports: Appendectomy, Colonoscopy, Polypectomy Dermatological Surgical History: Reports: Skin Biopsy, Other (See Below) Social & Family History - Family History Family Medical History: Noncontributory - Tobacco Use Smoking Status *Q: Never Smoker - Caffeine Use Caffeine Use: Reports: Coffee - Recreational Drug Use Recreational Drug Use: No H&P Review of Systems - Review of Systems: Review Of Systems: Comprehensive ROS is negative, except as noted in HPI. Exam - Exam Exam: See Below - Vital Signs Vital Signs: Last Vital Signs Temp 36.8 C 03/01/20 11:42 Pulse 94 03/01/20 11:42 Resp 18 03/01/20 11:42 BP 120/66 03/01/20 11:42 Pulse Ox 96 03/01/20 11:42 Weight: 58.74 kg - Exam Quality Assessment: Supplemental Oxygen General: Alert, Oriented, Cooperative, Mild Distress HEENT: PERRLA, Conjunctiva Clear, EACs Clear, EOMI, Hearing Intact, Mucosa Moist & [place], Nares Patent, Posterior Pharynx Clear, Pupils Equal Neck: Supple, Trachea Midline Lungs: Clear to Auscultation, Normal Respiratory Effort Cardiovascular: Regular Rate, Regular Rhythm GI/Abdominal Exam: Normal Bowel Sounds, Soft, Non-Tender, No Distention Back Exam: Normal Inspection Extremities: Normal Capillary Refill Skin: Warm, Dry, Intact Neuro Extensive - Mental Status: Alert, Oriented x3, Normal Mood/Affect Psychiatric: Alert - Patient Data Lab Results Last 24 hrs: Laboratory Results - last 24 hr 03/01/20 Range/Units 10:29 SARS-CoV-2 RNA (RT-PCR) Negative Sepsis Event Note - Evaluation Sepsis Screening Result: No Definite Risk - Focused Exam Vital Signs: Vital Signs Temp Pulse Resp BP Pulse Ox 03/01/20 11:42 36.8 C 94 18 120/66 96 03/01/20 10:53 94 98 03/01/20 10:15 36.4 C 97 20 147/95 H 100 03/01/20 10:11 36.4 C 97 20 147/95 H 100 Respiratory Effort Without Exertion: Dyspneic, Orthopnea, Use Of Accessory Muscles Capillary Refill, Detail: Less than/Equal to (</=) 2 Seconds Pulse Description: 2+ Normal Peripheral Pulse Location: Dorsalis Pedis Skin Exam (Focused Sepsis): Normal Turgor, Pale Date Exam was Performed: 03/01/20 Time Exam was Performed: 13:54 - Problem List (1) Neoplasm of lung SNOMED Code(s): 926615087 ICD Code: D49.1 - NEOPLASM OF UNSPECIFIED BEHAVIOR OF RESPIRATORY SYSTEM Status: Acute Priority: High Current Visit: Yes (2) Shortness of breath SNOMED Code(s): 919047622 ICD Code: R06.02 - SHORTNESS OF BREATH Status: Acute Priority: High Current Visit: Yes (3) Pain SNOMED Code(s): 11644012 ICD Code: R52 - PAIN, UNSPECIFIED Status: Acute Priority: High Current Visit: Yes Problem List Initiated/Reviewed/Updated: Yes Orders Last 24hrs: Active Orders 24 hr Category Date Time Status Patient Status [ADT] Routine ADT 03/01/20 11:54 Active Height and Weight [RC] UPON Care 03/01/20 11:54 Active Intake and Output [RC] QSHIFT Care 03/01/20 11:56 Active Oxygen Therapy [RC] PRN Care 03/01/20 11:54 Active VTE/DVT Education [RC] Per Unit Routine Care 03/01/20 11:54 Active Vital Signs [RC] Q4H Care 03/01/20 11:54 Active Regular Diet [DIET] Diet 03/01/20 Dinner Ordered Chest 1V Frontal [CR] Stat Exams 03/01/20 11:33 Ordered BASIC METABOLIC PANEL,BMP [CHEM] Stat Lab 03/01/20 11:34 Ordered CBC WITH AUTO DIFF [HEME] Stat Lab 03/01/20 11:34 Ordered Aspirin [Halfprin] Med 03/01/20 20:00 Active 81 mg PO QPM LORazepam [Ativan] Med 03/01/20 11:57 Active 1 mg IVPUSH Q4H PRN Morphine Sulfate [Morphine] Med 03/01/20 11:54 Active 4 mg IVPUSH Q2H PRN Naloxegol Oxalate [Movantik] Med 03/02/20 08:00 Active 12.5 mg PO DAILY Ondansetron [Zofran] Med 03/01/20 11:54 Active 4 mg IV Q4H PRN Sodium Chloride 0.9% [Normal Saline] 250 ml Med 03/01/20 11:45 Active IV ASDIRECTED Sodium Chloride 0.9% [Saline Flush] Med 03/01/20 11:33 Active 10 ml FLUSH ASDIRECTED PRN atorvaSTATin [Lipitor] Med 03/01/20 20:00 Active 20 mg PO BEDTIME Saline Lock Insert [OM.PC] Stat Oth 03/01/20 11:33 Ordered Resuscitation Status Routine Resus Stat 03/01/20 11:54 Ordered Medication Orders Aspirin (Halfprin) 81 mg PO QPM [facility]ETH Atorvastatin Calcium (Lipitor) 20 mg PO BEDTIME [facility] Sodium Chloride (Normal Saline) 250 mls @ 250 mls/hr IV ASDIRECTED [facility] Lorazepam (Ativan) 1 mg IVPUSH Q4H PRN PRN Reason: Anxiety Morphine Sulfate (Morphine) 4 mg IVPUSH Q2H PRN PRN Reason: Pain (severe 7-10) Naloxegol (Movantik) 12.5 mg PO DAILY [facility] Ondansetron HCl (Zofran) 4 mg IV Q4H PRN PRN Reason: Nausea/Vomiting Sodium Chloride (Saline Flush) 10 ml FLUSH ASDIRECTED PRN PRN Reason: Keep Vein Open Assessment/Plan Comment:: 03/01/2020 Assessment 1) Respiratory Distress 2) Pain Plan 1) Admit observation status to acute care unit. 2) Supplemental oxygen to keep saturations greater than 92% 3) IV fluid rehydration 4) Activity as tolerated 5) Pain management with IV morphine. 6) Management of anxiety with Ativan. 7) Reevaluation 03/02/2020 - Mortality Measure Prognosis:: Poor
[2020-03-01] MEDS: Sodium Chloride 0.9% 1,000 ML IV SCH ×2 (16:20→23:58)
[2020-03-01] MEDS: LORazepam 2 MG/ML SDV IVPUSH PRN ×2 (16:31→22:32)
[2020-03-01] MEDS ORDERED: Aspirin 81 MG Tab.EC PO SCH (20:00)
[2020-03-01] MEDS ORDERED: atorvaSTATin 20 MG Tab PO SCH (20:00)
[2020-03-02] MEDS: LORazepam 2 MG/ML SDV IVPUSH PRN (05:58)
[2020-03-02] MEDS: Sodium Chloride 0.9% 1,000 ML IV SCH (07:34)
--- NOTE | 2020-03-02 09:08 | CR ---
DATE OF SERVICE: 03/01/20 CLINICAL DATA: SOB AP CHEST: Comparison is made to a prior exam dated 09/24/19. The heart size is stable. There is a persistent mass in the left mid lung and left hilum. It has increased in size from the prior exam. There is adjacent pleural thickening that has progressed from the prior study. There are emphysematous changes throughout the right lung. It appears unchanged from the prior study. The remainder of the exam is unchanged. [id number] [facility]
[2020-03-02] MEDS ORDERED: LORazepam 0.5 MG Tab PO PRN (11:06)
[2020-03-02] MEDS ORDERED: Ondansetron 4 MG Tab.DIS PO PRN (11:07)
[2020-03-02] MEDS ORDERED: fentaNYL 25 MCG/HR Transdermal Patch TRDERM SCH (11:15)
[2020-03-02] MEDS ORDERED: oxyCODONE 5 MG Tab PO PRN (12:59)
[2020-03-02] MEDS ORDERED: Morphine 10 MG/ML SDV IV PRN (13:38)
[2020-03-02] MEDS ORDERED: LORazepam 2 MG/ML SDV IVPUSH PRN (13:39)
--- NOTE | 2020-03-02 13:46 | PCM.PN ---
- General Info Date of Service: 03/02/20 Pain Score: 7 (difficulty controlling pain with ordered medications) - Review of Systems General: Reports: Weakness, Fatigue, Malaise, Chills. Denies: Fever, Appetite HEENT: Reports: No Symptoms Pulmonary: Reports: Shortness of Breath. Denies: Cough Cardiovascular: Reports: Chest Pain. Denies: Palpitations Gastrointestinal: Reports: Decreased Appetite. Denies: Abdominal Pain, Diarrhea , Nausea, Vomiting Musculoskeletal: Reports: Shoulder Pain (left) Skin: Reports: No Symptoms Neurological: Denies: Confusion, Headache Psychiatric: Reports: No Symptoms - Patient Data Vitals - Most Recent: Last Vital Signs Temp 36.7 C 03/02/20 12:00 Pulse 106 H 03/02/20 12:00 Resp 24 H 03/02/20 12:00 BP 139/67 03/02/20 12:00 Pulse Ox 93 L 03/02/20 12:00 Weight - Most Recent: 58.74 kg I&O - Last 24 Hours: Intake & Output 03/01/20 03/02/20 03/02/20 22:59 06:59 14:59 Intake Total 375 1800 Output Total 400 Balance 375 1400 Lab Results Last 24 Hours: Laboratory Results - last 24 hr 03/01/20 03/01/20 Range/Units 14:28 14:28 WBC 9.5 (4.0-11.0) K/uL RBC 4.40 L (4.50-6.50) M/uL Hgb 11.8 L (13.0-18.0) g/dL Hct 37.0 L (40.0-54.0) % MCV 84 (76-96) fL MCH 26.8 L (27.0-32.0) pg MCHC 31.9 (31.0-35.0) g/dL RDW 13.7 (11.0-16.0) % Plt Count 339 (150-400) K/uL MPV 8.9 (6.0-10.0) fL Neut % (Auto) 78.4 H (45.0-70.0) % Lymph % (Auto) 12.2 L (20.0-40.0) % [place] % (Auto) 8.1 (3.0-10.0) % Eos % (Auto) 0.6 L (1.0-5.0) % Baso % (Auto) 0.7 H (0.0-0.5) % Neut # (Auto) 7.45 (2.00-7.50) K/uL Lymph # (Auto) 1.16 L (1.50-4.00) K/uL [place] # (Auto) 0.77 (0.20-0.80) K/uL Eos # (Auto) 0.06 (0.04-0.40) K/uL Baso # (Auto) 0.07 (0.02-0.10) K/uL Sodium 137 (136-145) mmol/L Potassium 4.1 (3.5-5.1) mmol/L Chloride 97 L (98-107) mmol/L Carbon Dioxide 35.8 H (21.0-32.0) mmol/L Anion Gap 8.3 (5.0-15.0) mmol/L BUN 11 D (8-26) mg/dL Creatinine 0.75 (0.70-1.30) mg/dL Est Cr Clr Drug Dosing 75.06 mL/min Estimated GFR (MDRD) > 60 (>60) MLS/MIN BUN/Creatinine Ratio 14.7 (6-25) Glucose 155 H (74-100) mg/dL Calcium 8.6 (8.5-10.1) mg/dL Jason Results Last 24 Hours: Microbiology 03/01/20 14:20 MRSA Surveillance Culture - Final Nares, Left NO MRSA ISOLATED Med Orders - Current: Current Medications Aspirin (Halfprin) 81 mg PO QPM [facility] Last Admin: 03/01/20 20:00 Dose: 81 mg Atorvastatin Calcium (Lipitor) 20 mg PO BEDTIME [facility] Last Admin: 03/01/20 20:00 Dose: 20 mg Fentanyl (Duragesic) 25 mcg TRDERM Q72H [facility] Last Admin: 03/02/20 13:34 Dose: 25 mcg Sodium Chloride (Normal Saline) 1,000 mls @ 125 mls/hr IV ASDIRECTED [facility] Last Admin: 03/02/20 07:34 Dose: 125 mls/hr Miscellaneous Information (Remove Patch) 1 ea TRDERM Q72H [facility] Last Admin: 03/02/20 13:27 Dose: Not Given Naloxegol (Movantik) 12.5 mg PO DAILY [facility] Last Admin: 03/02/20 10:31 Dose: 12.5 mg Ondansetron HCl (Zofran Odt) 4 mg PO Q4H PRN PRN Reason: Nausea/Vomiting Oxycodone HCl (Oxycodone) 5 mg PO Q3H PRN PRN Reason: Pain Last Admin: 03/02/20 13:10 Dose: 5 mg Sodium Chloride (Saline Flush) 10 ml FLUSH ASDIRECTED PRN PRN Reason: Keep Vein Open Discontinued Medications Sodium Chloride (Normal Saline) 250 mls @ 250 mls/hr IV ASDIRECTED [facility] Last Admin: 03/01/20 12:45 Dose: 250 mls/hr Lorazepam (Ativan) 1 mg IVPUSH Q4H PRN PRN Reason: Anxiety Last Admin: 03/02/20 05:58 Dose: 1 mg Lorazepam (Ativan) 0.5 mg PO Q4H PRN PRN Reason: Anxiety Last Admin: 03/02/20 13:11 Dose: 0.5 mg Miscellaneous Information (Remove Patch) 1 ea TRDERM Q72H [facility] Morphine Sulfate (Morphine) 4 mg IVPUSH Q2H PRN PRN Reason: Pain (severe 7-10) Last Admin: 03/02/20 10:31 Dose: 4 mg Morphine Sulfate (Ms Contin) 30 mg PO Q12HR [facility] Ondansetron HCl (Zofran) 4 mg IV Q4H PRN PRN Reason: Nausea/Vomiting - Exam Quality Assessment: Supplemental Oxygen (5L per mask) General: Alert, Severe Distress HEENT: Pupils Equal, Pupils Reactive, EOMI, Mucous Membr. Moist/[place] Neck: Supple Lungs: Decreased Breath Sounds (significantly decreased lung sounds on left, some air entry upper lobe only. Right side clear with good air entry.) Cardiovascular: Regular Rate, Regular Rhythm GI/Abdominal Exam: Soft, Non-Tender, No Distention, Abnormal Bowel Sounds ( decreased in all quadrants) Skin: Warm, Dry, Intact Neurological: No New Focal Deficit Psy/Mental Status: Alert Sepsis Event Note - Evaluation Sepsis Screening Result: No Definite Risk - Focused Exam Vital Signs: Vital Signs Temp Pulse Resp BP Pulse Ox 03/02/20 12:00 36.7 C 106 H 24 H 139/67 93 L 03/02/20 08:00 36.4 C 103 H 16 150/72 H 97 03/02/20 04:00 36.5 C 100 20 130/77 99 Date Exam was Performed: 03/02/20 Time Exam was Performed: 13:40 - Problem List & Annotations (1) Neoplasm of lung SNOMED Code(s): 137244848 Code(s): D49.1 - NEOPLASM OF UNSPECIFIED BEHAVIOR OF RESPIRATORY SYSTEM Status: Acute Priority: High Current Visit: Yes (2) Shortness of breath SNOMED Code(s): 972514923 Code(s): R06.02 - SHORTNESS OF BREATH Status: Acute Priority: High Current Visit: Yes (3) Pain SNOMED Code(s): 72214852 Code(s): R52 - PAIN, UNSPECIFIED Status: Acute Priority: High Current Visit: Yes - Problem List Review Problem List Initiated/Reviewed/Updated: Yes - My Orders Last 24 Hours: My Active Orders 03/01/20 16:30 Sodium Chloride 0.9% [Normal Saline] 1,000 ml IV ASDIRECTED 03/01/20 20:00 Aspirin [Halfprin] 81 mg PO QPM atorvaSTATin [Lipitor] 20 mg PO BEDTIME 03/01/20 Dinner Regular Diet [DIET] 03/02/20 08:00 Naloxegol Oxalate [Movantik] 12.5 mg PO DAILY 03/02/20 11:07 Ondansetron [Zofran ODT] 4 mg PO Q4H PRN 03/02/20 11:15 Remove Patch 1 ea TRDERM Q72H fentaNYL [Duragesic] 25 mcg TRDERM Q72H 03/02/20 12:59 oxyCODONE 5 mg PO Q3H PRN 03/02/20 13:38 Morphine 4 mg IV Q3H PRN 03/02/20 13:39 LORazepam [Ativan] 1 mg IVPUSH Q4H PRN - Assessment Assessment:: Respiratory Distress Pain - Plan Plan:: 03/01/2020 Assessment 1) Respiratory Distress 2) Pain Plan 1) Admit observation status to acute care unit. 2) Supplemental oxygen to keep saturations greater than 92% 3) IV fluid rehydration 4) Activity as tolerated 5) Pain management with IV morphine. 6) Management of anxiety with Ativan. 7) Reevaluation 03/02/2020 03/02/2020 Assessment 1) Respiratory Distress-Increased 2) Pain-Increased Plan Respiratory status has deteriorated some over night and this morning. Patient is requiring increased supplemental oxygen to keep saturation greater than 92. His is currently getting 5L per simple mask with saturation 93%. He also continues to have pain that is largely uncontrolled with medications. He will remain on IV pain medications and a fentanyl patch was placed today. Will contact [facility] to discuss transfer to their facility.
[2020-03-02] MEDS ORDERED: Famotidine 20 MG/2 ML SDV IVPUSH ONE (15:00)
[2020-03-02] MEDS ORDERED: Etomidate 2 MG/ML 20 ML SDV IVPUSH ONE (15:23)
[2020-03-02] MEDS ORDERED: Midazolam 1 MG/ML 5 ML SDV IVPUSH ONE ×2 (15:23→16:34)
[2020-03-02] MEDS ORDERED: Ketamine 200 MG/20 ML MDV IVPUSH ONE ×2 (15:23→16:34)
[2020-03-02] MEDS ORDERED: Rocuronium 50 MG/5 ML Vial IV ONE ×2 (15:35→16:34)
--- NOTE | 2020-03-02 16:33 | PCM.DCSUM1 ---
Discharge Summary - Hospital Course Diagnosis: Stroke: No - Discharge Data Discharge Date: 03/02/20 Discharge Disposition: DC/Tfer to Acute Hospital 02 Condition: Serious - Referral to Home Health Primary Care Physician: PCP None - Discharge Diagnosis/Problem(s) (1) Neoplasm of lung SNOMED Code(s): 249718620 ICD Code: D49.1 - NEOPLASM OF UNSPECIFIED BEHAVIOR OF RESPIRATORY SYSTEM Status: Acute Priority: High Current Visit: Yes (2) Shortness of breath SNOMED Code(s): 230758768 ICD Code: R06.02 - SHORTNESS OF BREATH Status: Acute Priority: High Current Visit: Yes (3) Pain SNOMED Code(s): 82497788 ICD Code: R52 - PAIN, UNSPECIFIED Status: Acute Priority: High Current Visit: Yes - Discharge Plan *PRESCRIPTION DRUG MONITORING PROGRAM REVIEWED*: Not Applicable Home Medications: Home Meds Aspirin [Nash Chewable] 81 mg PO QPM 03/06/18 [History] Multivitamin [Men's Multi-Vitamin] 1 each PO QPM 03/06/18 [History] atorvaSTATin [Lipitor] 20 mg PO BEDTIME 03/06/18 [History] Hydrocodone/Acetaminophen [Hydrocodon-Acetaminoph 7.5-325] 1 each PO Q6HR [History] Morphine 30 mg PO BID PRN 03/01/20 [History] - Discharge Summary/Plan Comment DC Time >30 min.: Yes - General Info Date of Service: 03/02/20 Admission Dx/Problem (Free Text: Admission Diagnosis/Problem Admission Diagnosis/Problem Neoplasm of lung Subjective Update: Patient had significant deterioration in his respiratory status with increased work of breathing, tachypnea, increased oxygen requirements and development of a respiratory acidosis. Decision made to transfer to [facility]; I spoke with Dr. Soto, hospitalist who did agree to accept this patient in transfer. The patient intubated prior to transfer and was stable and in guarded condition at the time he was transferred via helicopter to [facility]. Functional Status: Denies: Pain Controlled - Review of Systems General: Reports: Fatigue, Malaise. Denies: Appetite HEENT: Reports: No Symptoms Pulmonary: Reports: Shortness of Breath, Cough, Wheezing Cardiovascular: Reports: Dyspnea on Exertion, Orthopnea. Denies: Chest Pain, Palpitations Gastrointestinal: Denies: Abdominal Pain, Decreased Appetite, Difficulty Swallowing, Nausea, Vomiting Musculoskeletal: Reports: No Symptoms Skin: Reports: No Symptoms Neurological: Reports: No Symptoms - Patient Data Vitals - Most Recent: Last Vital Signs Temp 36.7 C 03/02/20 12:00 Pulse 106 H 03/02/20 12:00 Resp 24 H 03/02/20 12:00 BP 139/67 03/02/20 12:00 Pulse Ox 93 L 03/02/20 12:00 Weight - Most Recent: 58.513 kg I&O - Last 24 hours: Intake & Output 03/02/20 03/02/20 03/02/20 06:59 14:59 22:59 Intake Total 1800 Output Total 400 Balance 1400 Lab Results - Last 24 hrs: Laboratory Results - last 24 hr 03/02/20 Range/Units 14:31 VBG pH 7.30 L (7.31-7.41) VBG pCO2 69 H (41-51) mm/Hg VBG pO2 30 (30-50) mm/Hg VBG HCO3 34.0 H (23.0-28.0) mmol/L VBG O2 Saturation 49 L (60-85) % VBG Base Excess 8 H (-2-3) mm/L O2 Delivery Device Simple mask [facility] Results - Last 24 hrs: Microbiology 03/01/20 14:20 MRSA Surveillance Culture - Final Nares, Left NO MRSA ISOLATED Med Orders - Current: Current Medications Aspirin (Halfprin) 81 mg PO QPM [facility] Last Admin: 03/01/20 20:00 Dose: 81 mg Atorvastatin Calcium (Lipitor) 20 mg PO BEDTIME [facility] Last Admin: 03/01/20 20:00 Dose: 20 mg Fentanyl (Duragesic) 25 mcg TRDERM Q72H [facility] Last Admin: 03/02/20 13:34 Dose: 25 mcg Sodium Chloride (Normal Saline) 1,000 mls @ 125 mls/hr IV ASDIRECTED [facility] Last Admin: 03/02/20 07:34 Dose: 125 mls/hr Lorazepam (Ativan) 1 mg IVPUSH Q4H PRN PRN Reason: Anxiety Miscellaneous Information (Remove Patch) 1 ea TRDERM Q72H [facility] Last Admin: 03/02/20 13:27 Dose: Not Given Morphine Sulfate (Morphine) 4 mg IV Q3H PRN PRN Reason: Pain Naloxegol (Movantik) 12.5 mg PO DAILY [facility] Last Admin: 03/02/20 10:31 Dose: 12.5 mg Ondansetron HCl (Zofran Odt) 4 mg PO Q4H PRN PRN Reason: Nausea/Vomiting Last Admin: 03/02/20 13:54 Dose: 4 mg Oxycodone HCl (Oxycodone) 5 mg PO Q3H PRN PRN Reason: Pain Last Admin: 03/02/20 13:10 Dose: 5 mg Sodium Chloride (Saline Flush) 10 ml FLUSH ASDIRECTED PRN PRN Reason: Keep Vein Open Discontinued Medications Famotidine (Pepcid) 20 mg IVPUSH ONETIME ONE Stop: 03/02/20 15:01 Sodium Chloride (Normal Saline) 250 mls @ 250 mls/hr IV ASDIRECTED [facility] Last Admin: 03/01/20 12:45 Dose: 250 mls/hr Lorazepam (Ativan) 1 mg IVPUSH Q4H PRN PRN Reason: Anxiety Last Admin: 03/02/20 05:58 Dose: 1 mg Lorazepam (Ativan) 0.5 mg PO Q4H PRN PRN Reason: Anxiety Last Admin: 03/02/20 13:11 Dose: 0.5 mg Miscellaneous Information (Remove Patch) 1 ea TRDERM Q72H [facility] Morphine Sulfate (Morphine) 4 mg IVPUSH Q2H PRN PRN Reason: Pain (severe 7-10) Last Admin: 03/02/20 10:31 Dose: 4 mg Morphine Sulfate (Ms Contin) 30 mg PO Q12HR [facility] Morphine Sulfate (Morphine) Confirm Administered Dose 4 mg .ROUTE .STK-MED ONE Stop: 03/02/20 15:17 Ondansetron HCl (Zofran) 4 mg IV Q4H PRN PRN Reason: Nausea/Vomiting - Exam Quality Assessment: Reports: Supplemental Oxygen, Urine Catheter General: Reports: Other (propofol sedation) HEENT: Reports: Pupils Equal, Pupils Reactive, Mucous Membr. Moist/[place] Neck: Reports: Supple, Trachea Midline Lungs: Reports: Clear to Auscultation, Other (mechanical ventilation with 7.5 mm ETT) GI/Abdominal Exam: Abnormal Bowel Sounds (absent; #14 NG placed) Extremities: Normal Capillary Refill Skin: Reports: Warm, Dry, Intact Discharge Operative/Procedures - Procedures Performed Intubation Indication: Respiratory Failure (intubated with 7.5 mm ETT)
[2020-03-02] MEDS ORDERED: Morphine 2 MG/ML Syringe IVPUSH ONE (16:34)
[2020-03-02] MEDS ORDERED: propofoL 100 ML IV SCH (16:45)
[2020-03-02] MEDS ORDERED: Morphine 30 MG Tab.ER PO SCH (20:00)
--- NOTE | 2020-03-03 10:24 | CR ---
DATE OF SERVICE: 03/02/20 CLINICAL DATA: CHECK INTUBATION PLACEMENT. AP CHEST: Comparison is made to a prior exam dated 03/01/20. The patient has been intubated and the tip of the endotracheal tube is 1 cm above the brain. There is progressive atelectasis, infiltrate, and consolidation of the left lung. The right lung is stable. No other interval changes. [id number] [facility]
== END 2020-03-02 16:10 ==
LOC: LB.ED 09:21 → LB.MS 11:40 → UNDOADMOB 11:40 → LB.MS 11:54
PROVIDERS: ADMIT Nurse Practitioner; ATTEND Nurse Practitioner
DX: C34.90 Malignant neoplasm of unspecified part of unspecified bronchus or lung (principal); R06.02 Shortness of breath; R52 Pain, unspecified; J44.9 Chronic obstructive pulmonary disease, unspecified; E78.00 Pure hypercholesterolemia, unspecified; Z79.82 Long term (current) use of aspirin; Z88.8 Allergy status to other drugs, medicaments and biological substances; Z79.899 Other long term (current) drug therapy
CPT/HCPCS: 36415; 71045; 80048; 82803; 85025; 96361; 96374; 96375; 96376; 99217; 99219; 99285-25; A9270-GY; G0378; J2060; J2250; J2270; J2704; J3490; J7030; J7050; U0002